=== PATIENT | male | born 1950 | race Caucasian/White ===

== ENCOUNTER 2024-05-07 11:14 | Inpatient (IN) | payer MEDICARE, OTHER ==
[2024-05-07] VITALS (24 sets, daily range): BP systolic 119–139; BP diastolic 67–92
[~2024-05-07] VITALS: Ht 177.8 cm; Wt 111.0 kg
[~2024-05-07 11:14] MED LIST: DICYCLOMINE HCL20 MG PO; HYDROCHLOROT12.5 M1 PO; HYDROCO/APAP1 TA9 PO; PROTONIX40 M2 PO; ZOFRAN4 MG/TAB PO
[2024-05-07] MEDS ORDERED: DIATRIZOATE MEGLUMINE & SODIUM 30 ML/BTL PO ONE (11:40)
[2024-05-07 11:45] LABS: BASO% 0.4 % (0-3); EOS% 1.7 % (0-8); HEMATOCRIT 41.3 % (39.0-50.0); HEMOGLOBIN 13.7 g/dl (14.0-18.0); IMMATURE GRANULOCYTES 0.1 % (0.0-5.0); LYMPH% 16.7 % (15-41); MEAN CELL VOLUME 91.2 fL CALC (80.0-100.0); MEAN CORPUSCULAR HGB 30.2 pG CALC (26.0-32.0); MEAN CORPUSCULAR HGB CONC 33.2 g/dL CAL (32.0-36.0); MONO% 8.3 % (2-13); NEUT# 7.84 thou/uL (1.82-7.42); NEUT% 72.8 % (42-76); RED BLOOD COUNT 4.53 mill/uL (4.70-6.10); RED CELL DISTRI WIDTH 12.1 % (11.5-15.5)
[2024-05-07 12:06] LABS: ALBUMIN 4.3 g/dL (3.2-5.0); ALKALINE PHOSPHATASE 57 u/l (38-126); BUN 25 mg/dL (8-23); BUN/CREATININE RATIO 21 (12-20 (CALC)); CARBON DIOXIDE 29 mmol/l (22-30); CHLORIDE 102 mmol/l (95-108); CREATININE 1.2 mg/dL (0.7-1.3); ESTIMATED GFR 65 ML/MIN (>=90 (CALC)); SODIUM 139 mmol/l (137-146); TOTAL PROTEIN 7.7 g/dL (6.3-8.2)
[2024-05-07 12:13] LABS: ANION GAP 11 (6-22 (CALC)); BILIRUBIN, TOTAL 0.8 mg/dL (0.2-1.3); LIPASE 2577 u/l (23-300); POTASSIUM 3.2 mmol/l (3.5-5.1); SGOT/AST 57 u/l (19-48)
[2024-05-07] MEDS ORDERED: EZETIMIBE10 MG (16:15)
[2024-05-07] MEDS ORDERED: PLAVIX75 MG PO (16:16)
[2024-05-07] MEDS ORDERED: ASPIRINCHW 81MG PO (16:17)
[2024-05-07] MEDS ORDERED: HYDROCHLOROT25 MG PO (16:17)
[2024-05-07] MEDS ORDERED: ROSUVASTATIN CAL5 MG (16:19)
[2024-05-07] MEDS ORDERED: MAGNESIUM HYDROXIDE 30 ML UDC PO PRN (16:25)
[2024-05-07] MEDS ORDERED: ACETAMINOPHEN 325 MG/TAB PO PRN (16:25)
[2024-05-07] MEDS ORDERED: SODIUM CHLORIDE 0.9% 1,000 ML IV PRN (16:25)
[2024-05-07] MEDS ORDERED: Pantoprazole Sodium 40 MG VIAL (Protonix) IV SCH (17:00)
[2024-05-07] MEDS ORDERED: HYDROcodone 5 MG/Acetaminophen 325 MG/COMBO PO PRN (17:45)
[2024-05-07] MEDS ORDERED: MORPHINE SULFATE 4 MG/ML VIAL IV PRN (17:45)
[2024-05-07] MEDS ORDERED: POTASSIUM CHLORIDE 20 MEQ/TAB PO ONE (17:45)
[2024-05-07] MEDS ORDERED: ENOXAPARIN SODIUM 40 MG/0.4 ML SYR SC SCH (21:00)
[2024-05-08 04:14] VITALS: BP 125/77
[2024-05-08 06:38] LABS: BASO% 0.4 % (0-3); EOS% 2.1 % (0-8); HEMATOCRIT 38.2 % (39.0-50.0); HEMOGLOBIN 13.1 g/dl (14.0-18.0); IMMATURE GRANULOCYTES 0.1 % (0.0-5.0); LYMPH% 16.8 % (15-41); MEAN CELL VOLUME 91.2 fL CALC (80.0-100.0); MEAN CORPUSCULAR HGB 31.3 pG CALC (26.0-32.0); MEAN CORPUSCULAR HGB CONC 34.3 g/dL CAL (32.0-36.0); MONO% 9.8 % (2-13); NEUT# 7.26 thou/uL (1.82-7.42); NEUT% 70.8 % (42-76); RED BLOOD COUNT 4.19 mill/uL (4.70-6.10); RED CELL DISTRI WIDTH 12.3 % (11.5-15.5)
[2024-05-08 06:47] LABS: ALBUMIN 3.4 g/dL (3.2-5.0); BILIRUBIN, TOTAL 0.9 mg/dL (0.2-1.3); CHOLESTEROL HDL RATIO 2.4 (<4.4 (CALC)); MAGNESIUM 1.9 mg/dL (1.6-2.3); POTASSIUM 3.9 mmol/l (3.5-5.1)
[2024-05-08 06:58] VITALS: BP 108/71
[2024-05-08] MEDS ORDERED: CLOPIDOGREL BISULFATE 75 MG/TAB TAB PO SCH (09:00)
[2024-05-08] MEDS ORDERED: ASPIRIN 81 MG/TAB PO SCH (09:00)
[2024-05-08] MEDS ORDERED: AMPICILLIN & SULBACTAM SODIUM 3 GM in SODIUM CHLORIDE 0.9% 100 ML IV SCH (12:00)
[2024-05-08] MEDS ORDERED: FLUTICASONE PROPIONATE (Nasal) 50MCG/SPRAY INH SCH (12:00)
[2024-05-08 14:42] VITALS: BP 104/53
[2024-05-08 19:17] VITALS: BP 100/63
[2024-05-09 04:14] VITALS: BP 104/66
[2024-05-09 05:34] LABS: BASO% 0.4 % (0-3); EOS% 3.3 % (0-8); HEMATOCRIT 37.8 % (39.0-50.0); HEMOGLOBIN 12.7 g/dl (14.0-18.0); IMMATURE GRANULOCYTES 0.2 % (0.0-5.0); LYMPH% 18.8 % (15-41); MEAN CELL VOLUME 93.1 fL CALC (80.0-100.0); MEAN CORPUSCULAR HGB 31.3 pG CALC (26.0-32.0); MEAN CORPUSCULAR HGB CONC 33.6 g/dL CAL (32.0-36.0); MONO% 9.7 % (2-13); NEUT# 5.65 thou/uL (1.82-7.42); NEUT% 67.6 % (42-76); RED BLOOD COUNT 4.06 mill/uL (4.70-6.10)
[2024-05-09 05:52] LABS: ALBUMIN 3.2 g/dL (3.2-5.0); POTASSIUM 3.5 mmol/l (3.5-5.1); TOTAL PROTEIN 5.8 g/dL (6.3-8.2)
[2024-05-09 07:16] VITALS: BP 119/72
== END 2024-05-09 12:11 | disposition home or self-care (01) | DRG 440 ==
LOC: ED 11:14 → ED-I 11:37 → ED 11:37 → MS2 16:08
PROVIDERS: Family Medicine; Nurse Practitioner Family; ADMIT Internal Medicine; ATTEND Internal Medicine
DX: K85.30 Drug induced acute pancreatitis without necrosis or infection (principal); T50.2X5A Adverse effect of carbonic-anhydrase inhibitors, benzothiadiazides and other diuretics, initial encounter; K76.0 Fatty (change of) liver, not elsewhere classified; K76.89 Other specified diseases of liver; I10 Essential (primary) hypertension; I25.10 Atherosclerotic heart disease of native coronary artery without angina pectoris; J01.90 Acute sinusitis, unspecified; Z95.5 Presence of coronary angioplasty implant and graft
CPT/HCPCS: J1650; J2470; Q9967